=== PATIENT | female | born 1950 | race Caucasian/White ===

== ENCOUNTER 2020-10-23 17:21 | Emergency (ER) | payer MEDICARE, OTHER ==
[~2020-10-23 17:21] MED LIST: HYDROCODONE-CHLO5 ML PO; LEVAQUIN500 MG PO; LEVAQUIN750 MG PO; LIPITOR20 MG PO; MEDROL 4MG DOSEP4 MG PO; NEXIUM20 MG PO; NORCO 5-325 TA1 EACH PO; NORVASC5 MG PO; PRINIVIL20 MG PO; TAMIFLU 75MG CA75 MG PO; XARELTO20 MG PO; ZOFRAN8 MG PO
[2020-10-23 18:05] LABS: BASOPHIL 1.1 % (0-2); EOSINOPHIL 3.2 % (0-7); HCT 30.5 % (37.0-47.0); HGB 9.3 g/dl (12.5-16.0); LYMPHOCYTE 23.3 % (15-48); MCH 22.9 pg (25.0-31.0); MCHC 30.5 g/dL (32.0-36.0); MCV 75.1 fL (78.0-100.0); MONOCYTE 5.8 % (0-12); NEUTROPHIL 66.3 % (41-80); NRBC 0; PLT 387 K/uL (150-400); RBC 4.06 M/uL (4.20-5.40); RDW 16.1 % (11.5-14.0)
[2020-10-23 18:13] LABS: BILIRUBIN NEGATIVE (NEGATIVE); BLOOD NEGATIVE Ery/uL (NEGATIVE); CLARITY CLEAR (CLEAR); COLOR YELLOW (YELLOW); GLUCOSE (U) NORMAL (NORMAL); LEUKOCYTES 1+ Leu/uL (NEGATIVE); NITRITE NEGATIVE (NEGATIVE); PROTEIN NEGATIVE (NEGATIVE); SPECIFIC GRAVITY 1.025 (1.001-1.030); UROBILINOGEN 0.2 mg/dL (0.2-1.0); pH 5.5 (5.0-9.0)
[2020-10-23 18:16] LABS: INR 1.35 (0.9-1.2); PROTHROMBIN TIME 15.8 SECONDS (11.4-13.6)
[2020-10-23 18:25] LABS: BACTERIA 4+; URINARY WBC 20-50
[2020-10-23 18:28] LABS: ALBUMIN 4.1 g/dL (3.4-5.0); BILIRUBIN - TOTAL 0.5 mg/dL (0.2-1.0); BUN/CREAT RATIO (CALC) 18.5 RATIO; CREATININE 1.51 mg/dL (0.51-0.95); GLOBULIN (CALCULATION) 3.6 g/dL; POTASSIUM 4.5 mmol/L (3.5-5.1); TOTAL PROTEIN 7.7 g/dL (6.4-8.2)
[2020-10-23] MEDS ORDERED: KEFLEX250 MG PO (19:51)
[2020-10-23] MEDS ORDERED: PEPCID AC20 MG PO (19:51)
== END 2020-10-23 20:33 | disposition home or self-care (01) ==
LOC: FER 17:21
PROVIDERS: Emergency Medicine
DX: K29.70 Gastritis, unspecified, without bleeding (principal); K21.9 Gastro-esophageal reflux disease without esophagitis; N39.0 Urinary tract infection, site not specified; I11.0 Hypertensive heart disease with heart failure; I50.9 Heart failure, unspecified; Z88.0 Allergy status to penicillin; Z88.5 Allergy status to narcotic agent; Z88.6 Allergy status to analgesic agent
CPT/HCPCS: 36415; 80053; 81001; 83690; 84484; 85025; 85610; 87076; 87088; 87186; 93005

== ENCOUNTER 2021-01-03 14:26 | Emergency (ER) | payer MEDICARE, OTHER ==
[~2021-01-03 14:26] MED LIST changes: +KEFLEX250 MG PO; +PEPCID AC20 MG PO
== END 2021-01-03 17:48 | disposition home or self-care (01) ==
LOC: FER 14:26
DX: S73.111A Iliofemoral ligament sprain of right hip, initial encounter (principal); Z88.0 Allergy status to penicillin; Z88.6 Allergy status to analgesic agent; Z95.0 Presence of cardiac pacemaker; Z96.641 Presence of right artificial hip joint; X58.XXXA Exposure to other specified factors, initial encounter; Y92.009 Unspecified place in unspecified non-institutional (private) residence as the place of occurrence of the external cause
CPT/HCPCS: 73502

== ENCOUNTER 2021-02-01 11:48 | Emergency (ER) | payer MEDICARE, OTHER | END 2021-02-01 13:38 | disposition home or self-care (01) | LOC: FER 11:48 | DX: M25.551 Pain in right hip (principal); I10 Essential (primary) hypertension; Z88.0 Allergy status to penicillin; Z88.6 Allergy status to analgesic agent; Z88.5 Allergy status to narcotic agent; Z96.641 Presence of right artificial hip joint | CPT/HCPCS: 73502 ==

== ENCOUNTER 2021-06-07 17:30 | Day surgery (SDCO) | payer MEDICARE, OTHER ==
[~2021-06-07] VITALS: Ht 165.1 cm; Wt 58.5 kg
[2021-06-07 18:05] LABS: BASOPHIL 1.3 % (0-2); EOSINOPHIL 6.3 % (0-7); HCT 20.8 % (37.0-47.0); LYMPHOCYTE 28.8 % (15-48); MCHC 26.4 g/dL (32.0-36.0); MCV 64.2 fL (78.0-100.0); MPV 9.5 fL (6.0-9.5); NEUTROPHIL 54.4 % (41-80); NRBC 0; PLT 357 K/uL (150-400); RBC 3.24 M/uL (4.20-5.40); WBC 5.2 K/uL (4.0-10.5)
[2021-06-07 18:09] LABS: HGB 5.5 g/dl (12.5-16.0)
[2021-06-07 18:22] LABS: ALBUMIN 3.8 g/dL (3.4-5.0); BILIRUBIN - TOTAL 0.3 mg/dL (0.2-1.0); BUN/CREAT RATIO (CALC) 13.5 RATIO; CREATININE 1.33 mg/dL (0.51-0.95); GLOBULIN (CALCULATION) 3.2 g/dL; POTASSIUM 4.2 mmol/L (3.5-5.1)
[2021-06-07 18:28] LABS: LACTIC ACID 1.3 mmol/L (0.4-1.9)
[2021-06-07 19:00] LABS: CORONAVIRUS 2019 SARS-COV-2 NEGATIVE (NEGATIVE); INFLUENZA A NAA NEGATIVE (NEGATIVE)
[2021-06-07 23:31] LABS: BILIRUBIN NEGATIVE (NEGATIVE); BLOOD NEGATIVE Ery/uL (NEGATIVE); CLARITY CLEAR (CLEAR); COLOR YELLOW (YELLOW); GLUCOSE (U) NORMAL (NORMAL); LEUKOCYTES NEGATIVE Leu/uL (NEGATIVE); NITRITE NEGATIVE (NEGATIVE); PROTEIN NEGATIVE (NEGATIVE); SPECIFIC GRAVITY 1.025 (1.001-1.030); UROBILINOGEN 0.2 mg/dL (0.2-1.0)
[2021-06-08 05:41] LABS: BASOPHIL 1.6 % (0-2); EOSINOPHIL 5.7 % (0-7); HCT 30.2 % (37.0-47.0); MCH 20.7 pg (25.0-31.0); MCHC 29.1 g/dL (32.0-36.0); MONOCYTE 9.2 % (0-12); MPV 9.6 fL (6.0-9.5); NEUTROPHIL 57.1 % (41-80); NRBC 0; PLT 291 K/uL (150-400); RBC 4.26 M/uL (4.20-5.40); RDW 21.7 % (11.5-14.0); WBC 5.1 K/uL (4.0-10.5)
[2021-06-08 05:45] LABS: HGB 8.8 g/dl (12.5-16.0); MCV 70.9 fL (78.0-100.0)
[2021-06-08 05:54] LABS: INR 1.71 (0.9-1.2); PROTHROMBIN TIME 19.3 SECONDS (11.8-13.4)
[2021-06-08 06:07] LABS: CREATININE 1.14 mg/dL (0.51-0.95); POTASSIUM 4.8 mmol/L (3.5-5.1)
[2021-06-08] MEDS ORDERED: PANTOPRAZOLE SO40 MG PO (12:00)
== END 2021-06-08 13:54 | disposition home or self-care (01) ==
LOC: FER 17:30 → FMS 06-08 02:07
PROVIDERS: Nurse Practitioner; Nurse Practitioner Family; ADMIT Internal Medicine
DX: D50.0 Iron deficiency anemia secondary to blood loss (chronic) (principal); K29.51 Unspecified chronic gastritis with bleeding; K27.4 Chronic or unspecified peptic ulcer, site unspecified, with hemorrhage; K31.9 Disease of stomach and duodenum, unspecified; K44.9 Diaphragmatic hernia without obstruction or gangrene; N17.9 Acute kidney failure, unspecified; I10 Essential (primary) hypertension; E78.5 Hyperlipidemia, unspecified; K21.9 Gastro-esophageal reflux disease without esophagitis; Z87.891 Personal history of nicotine dependence; Z88.5 Allergy status to narcotic agent; Z88.6 Allergy status to analgesic agent; Z88.0 Allergy status to penicillin; Z79.01 Long term (current) use of anticoagulants; Z79.899 Other long term (current) drug therapy; Z20.822 Contact with and (suspected) exposure to COVID-19
CPT/HCPCS: 36415; 80048; 80053; 81003; 83605; 84484; 85025; 85379; 85610; 86850; 86900; 86901; 86922; 87040; 93005; 94010; C9113; G0378; J0171; J2354; J2405; J2704; J7030; J7120; P9016; U0002

== ENCOUNTER 2021-08-06 13:47 | Emergency (ER) | payer MEDICARE, OTHER ==
[~2021-08-06 13:47] MED LIST changes: +PANTOPRAZOLE SO40 MG PO
[2021-08-06] MEDS ORDERED: OXY-IR 5MG5 MG PO (16:36)
== END 2021-08-06 17:14 | disposition home or self-care (01) ==
LOC: FER 13:47
DX: G89.29 Other chronic pain (principal); M25.551 Pain in right hip; Z88.0 Allergy status to penicillin; Z88.6 Allergy status to analgesic agent; Z87.891 Personal history of nicotine dependence
CPT/HCPCS: 73502

== ENCOUNTER 2021-09-27 15:50 | Emergency (ER) | payer MEDICARE, OTHER ==
[~2021-09-27] VITALS: Ht 160 cm; Wt 49.9 kg
[~2021-09-27 15:50] MED LIST changes: +OXY-IR 5MG5 MG PO
== END 2021-09-27 18:41 | disposition home or self-care (01) ==
LOC: FER 15:50
DX: S46.912A Strain of unspecified muscle, fascia and tendon at shoulder and upper arm level, left arm, initial encounter (principal); I10 Essential (primary) hypertension; Z88.0 Allergy status to penicillin; Z88.6 Allergy status to analgesic agent; Z88.5 Allergy status to narcotic agent
CPT/HCPCS: 73030

== ENCOUNTER 2021-10-16 16:15 | Emergency (ER) | payer MEDICARE, OTHER ==
[2021-10-16] MEDS ORDERED: CYCLOBENZAPRINE10 MG PO (19:04)
== END 2021-10-16 19:14 | disposition home or self-care (01) ==
LOC: FER 16:15
DX: S46.812A Strain of other muscles, fascia and tendons at shoulder and upper arm level, left arm, initial encounter (principal); M77.8 Other enthesopathies, not elsewhere classified; I10 Essential (primary) hypertension; Z79.02 Long term (current) use of antithrombotics/antiplatelets; Z88.0 Allergy status to penicillin; Z88.5 Allergy status to narcotic agent; Z88.6 Allergy status to analgesic agent; Z87.891 Personal history of nicotine dependence
CPT/HCPCS: 73030; 93005